=== PATIENT | female | born 1960 | race Caucasian/White ===

== ENCOUNTER → 2024-03-27 07:52 | Outpatient (BNVA) | payer MEDICARE, OTHER, SELFPAY | PROVIDERS: Visit Provider Podiatrist Foot & Ankle Surgery | DX: M79.671 Pain in right foot (principal); M79.672 Pain in left foot; G57.93 Unspecified mononeuropathy of bilateral lower limbs; Z98.890 Other specified postprocedural states | CPT/HCPCS: 73630; 99203 ==

== ENCOUNTER 2024-04-26 07:44 | Outpatient (CLI) | payer MEDICARE, OTHER, SELFPAY ==
--- NOTE | 2024-04-26 08:00 | MR_ITS ---
WS: [id number] MRI RIGHT FOOT WITHOUT CONTRAST. COMPARISON: Radiograph 03/27/2024 Multiplanar, multisequence imaging is performed without contrast. History: Neuritis, possible stress fracture RIGHT great toe. Prior bunionectomy. Artifact in the distal first metatarsal related to the bunionectomy screw. Mild narrowing of the firs t metatarsophalangeal joint. Very subtle increased T2 signal in the proximal second metatarsal. No fr acture identified. No toe edema or displacement. In the distal flexor hallucis longus tendon there is increased signal with irregularity of the tendon at the level of the mid proximal first phalanx. There is additional very slight increased signal in the lateral plantar plate of the first metatarsal phalangeal joint. Fluid extends between the flexor hallucis longus tendon and the lateral flexor hallucis brevis tendon. No additional abnormalities are identified. MR/MR foot RT wo con* [id number] IMPRESSION: 1. Mild tenosynovitis in the flexor hallucis longus tendon sheath with adjacen t irregularity of the tendon at the level of the proximal first phalanx. There is no complete tendon tear. 2. Additional edema along the lateral plantar plate of the first metatarsophal angeal joint consistent with a very minimal tear and interruption of the fibrou s capsule of the first metatarsal phalangeal joint. 3. Minimal marrow edema in the proximal second metatarsal. This may be the res ults of marrow edema related to stress. There is no fracture at this time.
== END 2024-04-26 07:45 | disposition home or self-care (01) ==
LOC: RAD 07:45
PROVIDERS: Visit Provider Podiatrist Foot & Ankle Surgery
DX: M84.30XA Stress fracture, unspecified site, initial encounter for fracture (principal); S93.521A Sprain of metatarsophalangeal joint of right great toe, initial encounter; X58.XXXA Exposure to other specified factors, initial encounter
CPT/HCPCS: 73718